=== PATIENT | male | born 1955 | race Caucasian/White ===

== ENCOUNTER → 2017-03-25 | Outpatient (CLI) | payer OTHER ==
[2017-03-25 09:26] LABS: ANION GAP 5 MEQ/L (5-15); AST (GOT) 21 U/L (15-37); BICARBONATE 28.1 MEQ/L (21.0-32.0); BLOOD UREA NITROGEN 21 MG/DL (7-18); CHLORIDE 104 MEQ/L (98-107); GLOMERULAR FILTRATION RATE 63 ML/MIN (>89); GLUCOSE,FASTING 186 MG/DL (74-99); POTASSIUM 4.3 MEQ/L (3.5-5.1); SODIUM (NA) 137 MEQ/L (136-145)
[2017-03-25 09:28] LABS: ALT (GPT) 40 U/L (12-78)
[2017-03-25 09:37] LABS: HDL CHOLESTEROL 48.5 MG/DL (40.0-60.0); LDL CHOLESTEROL 50 MG/DL (0-99)
[2017-03-25 10:51] LABS: MICRO ALBUMIN RANDOM URINE RAW 24.8 MG/L (0.0-30.0)
[2017-03-25 15:49] LABS: HEMOGLOBIN A1a 1.3 %; HEMOGLOBIN Ao 80.6 %; HEMOGLOBIN LA1C 2.6 %; HEMOGLOBIN P3 4.6 %
== END ==
LOC: OLAB 07:43
PROVIDERS: ATTEND Internal Medicine
DX: E11.65 Type 2 diabetes mellitus with hyperglycemia (principal)
CPT/HCPCS: 80048; 80061; 82043; 82570; 83036; 84156; 84443; 84450; 84460

== ENCOUNTER → 2017-04-02 | Day surgery (SDC) | payer OTHER ==
[~2017-04-02] MED LIST: BUPIVACAINE HCL PF 0.75% 30 ML VIAL ONE; LACTATED RINGER'S 1000 ML INJ 1,000 ML ONE; LIDOCAINE 1.5%/EPINEPHrine 1:200,000 PF SOLN 30 ML AMP ONE; MIDAZOLAM HCL 5 MG/5 ML VIAL ONE; ONDANSETRON HCL 4 MG/2 ML VIAL IV PUSH ONE; PROPOFOL 200 MG/20 ML AMP IV ONE; ceFAZolin INJ 1,000 MG VIAL ONE
--- NOTE | 2017-04-02 15:47 | TN ---
cc: DARIA LANGE MD DATE OF SURGERY: 04/02/2017. 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 OPERATIVE PROCEDURE PERFORMED: Left shoulder open excision distal clavicle with subacromial decompression. SURGEON: Daria Lange MD. DESCRIPTION OF THE PROCEDURE IN DETAIL: Informed consent was obtained. The patient was taken to the operating room and placed in the supine position on the operating table. He was administered a general anesthesia via Dr. Eid of the anesthesia department. He had been given a block prior to the initiation of the anesthesia. The patient was placed in a beach chair position. A sterile U-drape was applied over the shoulder. The shoulder was prepped with Betadine soap followed by Betadine paint. Draping commenced with sterile towels about the shoulder and split sheets. A stockinette was applied over the hand and forearm. A time-out was held and confirmed. The patient had been given gram of Ancef prior to initiation of the procedure. At that time, incision was made over the AC joint and skin and subcutaneous tissue was divided. Bleeders were coagulated utilizing a Bovie. A deep incision was made longitudinally in the periosteum over the AC joint. This was spread anteriorly and posteriorly and the distal clavicle was examined. Utilizing an oscillating saw, the distal one-quarter inch of clavicle was removed. Utilizing a rongeur and a rasp, some osteophyte which was proximal to the level of resection of the clavicle was removed under the distal aspect of the clavicle. Utilizing these instruments, additional debridement underneath the acromion was performed to smooth out a subacromial osteophyte. At that time the wound was irrigated and closed with 2-0 TiCron, #0 Vicryl and the subcutaneous tissue was closed with 3-0 plain and the skin with 4-0 nylon interrupted stitches utilizing the Ardener type stitch, Steri-Strips, 4 x 4s, ABD and tape were applied to the patient's shoulder. He tolerated the procedure well and was then taken to the recovery room in stable condition. At the completion of the procedure, the sponge count, instrument count and needle count were correct. The estimated blood was less than 10 cc. MD NIMCO Parikh/DANNIE /3:31 PM /3:38 PM MAURICIO
== END | disposition home or self-care (01) ==
LOC: ESDC 12:25
PROVIDERS: ATTEND Orthopaedic Surgery
DX: M19.012 Primary osteoarthritis, left shoulder (principal); M75.42 Impingement syndrome of left shoulder
CPT/HCPCS: 00450; 23120; 64415; 88305; 88311; J0690; J2250; J2405; J7120

== ENCOUNTER → 2017-05-04 | Outpatient (CLI) | payer OTHER ==
[2017-05-04 09:16] LABS: TOTAL BILIRUBIN ADULT 1.3 MG/DL (0.2-1.0)
== END ==
LOC: OLAB 07:33
PROVIDERS: ATTEND Family Medicine
DX: L29.9 Pruritus, unspecified (principal)
CPT/HCPCS: 80076; 82565; 84520

== ENCOUNTER → 2017-05-11 | Outpatient (CLI) | payer OTHER ==
[2017-05-11 12:44] LABS: AUTOMATED NEUTROPHIL # 4.6 TH/MM3 (1.8-7.7); BASOPHIL % 0.5 % (0.0-2.0); EOSINOPHIL # 0.2 TH/MM3 (0-0.4); EOSINOPHIL % 3.6 % (0.0-4.0); HEMATOCRIT 48.5 % (39.0-51.0); HEMO FLAGS DIFF FINAL; LYMPH % 16.8 % (9.0-44.0); LYMPHOCYTE # 1.1 TH/MM3 (1.0-4.8); MEAN CELL VOLUME 89.9 FL (80.0-100.0); MEAN CORPUSCULAR HEMOGLOBIN 29.7 PG (27.0-34.0); MONO % 9.2 % (0.0-8.0); NEUT % 69.9 % (16.0-70.0); PLATELET COUNT 138 TH/MM3 (150-450); RED CELL DISTRIBUTION WIDTH 13.3 % (11.6-17.2); WHITE BLOOD COUNT 6.5 TH/MM3 (4.0-11.0)
[2017-05-11 13:05] LABS: ALT (GPT) 25 U/L (12-78); ANION GAP 7 MEQ/L (5-15); AST (GOT) 16 U/L (15-37); BICARBONATE 26.2 MEQ/L (21.0-32.0); BLOOD UREA NITROGEN 24 MG/DL (7-18); CHLORIDE 105 MEQ/L (98-107); GLOMERULAR FILTRATION RATE 62 ML/MIN (>89); GLUCOSE,FASTING 153 MG/DL (74-99); POTASSIUM 4.4 MEQ/L (3.5-5.1); SODIUM (NA) 138 MEQ/L (136-145)
[2017-05-11 13:07] LABS: ALKALINE PHOSPHATASE 83 U/L (45-117); HDL CHOLESTEROL 54.1 MG/DL (40.0-60.0); LDL CHOLESTEROL 49 MG/DL (0-99); TOTAL BILIRUBIN ADULT 1.6 MG/DL (0.2-1.0)
[2017-05-11 14:22] LABS: HEMOGLOBIN A1a 1.3 %; HEMOGLOBIN A1b 1.8 %; HEMOGLOBIN Ao 81.6 %; HEMOGLOBIN LA1C 2.4 %; HEMOGLOBIN P3 4.2 %
== END ==
LOC: OLAB 07:36
PROVIDERS: ATTEND Family Medicine
DX: E11.9 Type 2 diabetes mellitus without complications (principal)
CPT/HCPCS: 80053; 80061; 83036; 85025

== ENCOUNTER → 2017-05-21 | Outpatient (CLI) | payer OTHER ==
[2017-05-21 12:48] LABS: BLOOD, URINE NEG (NEG); GLUCOSE,URINE 1000 mg/dL (NEG); KETONE, URINE NEG (NEG); NITRITE,URINE NEG (NEG); SQUAMOUS EPITHELIAL CELL URINE <1 /hpf (0-5); URINE COLOR LIGHT-YELLOW (YELLW/STRAW)
[2017-05-21 12:49] LABS: COMMENT (UR) CULT NOT INDICATED; CULTURE IF INDICATED CULT NOT INDICATED
== END ==
LOC: OLAB 08:55
PROVIDERS: ATTEND Family Medicine
DX: R35.0 Frequency of micturition (principal); F39 Unspecified mood [affective] disorder
CPT/HCPCS: 81001; 84153; 84403

== ENCOUNTER → 2017-07-24 | Outpatient (CLI) | payer OTHER ==
--- NOTE | 2017-07-24 14:23 | EKG ---
Date Performed: 07/24/2017 Time Performed: 09:59:08 PTAGE: 62 years EKG: Sinus rhythm NONSPECIFIC T-WAVE ABNORMALITY BORDERLINE ECG NO PREVIOUS TRACING DOCTOR: Jim Tello Interpretating Date/Time 07/24/2017 14:20:55
== END ==
LOC: HCAV 09:47
PROVIDERS: ATTEND Internal Medicine
DX: E11.65 Type 2 diabetes mellitus with hyperglycemia (principal)
CPT/HCPCS: 93005